=== PATIENT | male | born 1945 | race Caucasian/White ===

== ENCOUNTER → 2018-05-30 | Outpatient (CLI) | payer OTHER ==
--- NOTE | 2018-05-30 14:45 | PCVCIMAG ---
EXAM: BILATERAL LOWER EXTREMITY ARTERIAL DUPLEX INDICATION: Peripheral Arterial Disease. Leg pain. FINDINGS: Right Leg: Common femoral profunda femoral arteries are patent. Superficial femoral artery and popliteal artery are patent. The anterior tibial and peroneal arteries are patent. Occlusion throughout the posterior tibial artery. Left Leg: Common femoral and profunda femoral arteries are patent. Superficial femoral artery and popliteal artery are patent. Previous stent mid/distal superficial femoral artery is patent. Occlusion throughout the posterior tibial artery. The anterior tibial and peroneal arteries are patent. IMPRESSION: Occlusion of the right posterior tibial artery. Otherwise no flow limiting stenosis in the right lower extremity. Occlusion of the left posterior tibial artery. Otherwise no flow limiting stenosis in the left lower extremity. Previous left superficial femoral artery stent maintaining satisfactory patency. LOC:[id number]
== END | disposition home or self-care (01) ==
LOC: PCVCCLINIC 12:03
PROVIDERS: ATTEND Internal Medicine Cardiovascular Disease
DX: I73.9 Peripheral vascular disease, unspecified (principal)
CPT/HCPCS: 93925

== ENCOUNTER → 2018-06-06 | Outpatient (CLI) | payer OTHER ==
--- NOTE | 2018-06-06 11:46 | PCVCIMAG ---
APPROVED REPORT Study performed: 06/06/2018 09:08:40 EXAM: Comprehensive 2D, Doppler, and color-flow Echocardiogram Patient Location: Echo lab Status: routine BSA: 2.18 HR: 92 bpmBP: 142/84 mmHg Rhythm: Atrial Fibrillation Other Information Study Quality: Adequate Risk Factors: Cardiac Risk Factors: HTN, Hyperlipidemia Indications Abnormal ECG Atrial Fibrillation Dyspnea 2D Dimensions LVEF(%): 38.00 (>50%) IVSd: 15.06 (7-11mm)LVOT Diam: 20.00 (18-24mm) LVDd: 50.77 mm PWd: 16.08 (7-11mm)Ascending Ao: 36.18 (22-36mm) LVDs: 42.84 (25-40mm) Left Atrium: 51.02 (27-40mm) Aortic Root: 29.76 mm LV Single Plane 4CH: 38.09 % LV Single Plane 2CH: 35.00 %Howard's LVEF: 36.54 % Biplane EF: 37.5 % Volumes Left Atrial Volume (Systole) Single Plane 4CH: 66.58 mLSingle Plane 2CH: 65.02 mL LA ESV Index: 34.00 mL/m2 Aortic Valve AoV Peak Kevin.: 1.89 m/s AO Peak Gr.: 15.34 mmHgLVOT Max P.56 mmHg AO Mean Gr.: 9.00 mmHgLVOT Mean P.61 mmHg AO V2 Mean: 1.44 m/sLVOT Max V: 0.89 m/s AO V2 VTI: 32.11 cm ELLEN (VTI): 1.29 [id number] V1 VTI: 13.79 cm ELLEN Vmax: 1.41 cm2 Pulmonary Valve PV Peak Kevin.: 0.71 m/sPV Peak Gr.: 2.02 mmHg Tricuspid Valve TR Peak Kevin.: 3.10 m/sRAP Estimate: 7.00 mmHg TR Peak Gr.: 38.61 mmHg PA Pressure: 46.00 mmHg Left Ventricle The left ventricle is normal size. There is normal LV segmental wall motion. Moderate concentric left ventricular hypertrophy. Left ventricular systolic function is mild to moderately decreased. LVEF is 40-45% global hypo This study is not technically sufficient to allow evaluation of the LV diastolic function due to atrial fibrillation. Right Ventricle Right ventricle is dilated. The right ventricular systolic function is normal. Atria Left atrium is borderline dilated. Right atrium is dilated. Aortic Valve The Aortic valve is sclerotic. Mild aortic regurgitation. Mild aortic stenosis. The peak aortic valve gradient is 15 mmHg and the mean is 9 mmHg. The aortic valve area is 1.4 cm2. Mitral Valve There is mitral annular calcification. There is no mitral valve regurgitation noted. No evidence of mitral valve stenosis. Tricuspid Valve The tricuspid valve is normal in structure. Mild tricuspid regurgitation. Pulmonary artery pressure is 46 mmHg. Pulmonic Valve The pulmonary valve is normal in structure. Mild pulmonic regurgitation. Great Vessels The aortic root is normal in size. IVC is normal in size and collapses >50% with inspiration. Pericardium There is no pericardial effusion. <Conclusion> The left ventricle is normal size. Moderate concentric left ventricular hypertrophy. This study is not technically sufficient to allow evaluation of the LV diastolic function due to atrial fibrillation. Right ventricle is dilated. Left atrium is borderline dilated. Right atrium is dilated. Mild aortic regurgitation. Mild aortic stenosis. The peak aortic valve gradient is 15 mmHg and the mean is 9 mmHg. The aortic valve area is 1.4 cm2. There is no mitral valve regurgitation noted. There is mitral annular calcification. Mild tricuspid regurgitation. Pulmonary artery pressure is 46 mmHg. The aortic root is normal in size. There is no pericardial effusion.
--- NOTE | 2018-06-06 12:41 | PCVCIMAG ---
EXAM: BILATERAL CAROTID DUPLEX INDICATION: Carotid Occlusive Disease. FINDINGS: Doppler Measurements (centimeters per second): RIGHT: Peak CCA-43, Peak ECA-111, Diastolic ICA-29, Peak ICA-77, ICA/CCA Ratio-1.8. LEFT: Peak CCA-35, Peak ECA-61, Diastolic ICA-36, Peak ICA-72, ICA/CCA Ratio-2.0. RIGHT CAROTID: The carotid bulb has moderately severe plaque. The proximal internal carotid artery shows <40% stenosis. The common carotid artery shows no significant stenosis. The external carotid artery shows no significant stenosis. LEFT CAROTID: The carotid bulb has moderately severe plaque. The proximal internal carotid artery shows <40% stenosis. The common carotid artery shows no significant stenosis. The external carotid artery shows no significant stenosis. Antegrade flow in both vertebral arteries. IMPRESSION: <40% stenosis of the right internal carotid artery with moderately severe plaque. <40% stenosis of the left internal carotid artery with moderately severe plaque. LOC:[place] [id number]
== END | disposition home or self-care (01) ==
LOC: PCVCIMAG 16:00
PROVIDERS: ATTEND Internal Medicine Cardiovascular Disease
DX: I65.23 Occlusion and stenosis of bilateral carotid arteries (principal); I10 Essential (primary) hypertension; I25.10 Atherosclerotic heart disease of native coronary artery without angina pectoris; I48.0 Paroxysmal atrial fibrillation; R06.09 Other forms of dyspnea; R94.31 Abnormal electrocardiogram [ECG] [EKG]; I07.1 Rheumatic tricuspid insufficiency; R09.89 Other specified symptoms and signs involving the circulatory and respiratory systems; I73.9 Peripheral vascular disease, unspecified
CPT/HCPCS: 93306; 93880

== ENCOUNTER → 2018-06-13 | Outpatient (CLI) | payer OTHER ==
[~2018-06-13] MED LIST: DIAZEPAM 10 MG TABLET. ONE; FUROSEMIDE 40 MG/4 ML VIAL. ONE; IODIXANOL 270 MG/ML 100 ML VIAL. ONE; IOHEXOL 350 MG/ML 100 ML VIAL. ONE; IOHEXOL 350 MG/ML 50 ML VIAL. ONE; IV NORMAL SALINE 1000ML BAG 1,000 ML ONE; IV NORMAL SALINE 500ML BAG 1,000 ML ONE; LIDOCAINE 1% PF 30 ML VIAL. ONE; LIDOCAINE 1%/EPI 1:100,000 20 ML VIAL. ONE; METOPROLOL TARTRATE 5 MG/5 ML VIAL. IVP ONE; MIDAZOLAM HCL/PF 2 MG/2 ML VIAL. ONE; fentaNYL PF VIAL 100 MCG/2 ML VIAL ONE
--- NOTE | 2018-06-13 17:59 | PCVCINTER ---
EXAM: 1. AORTOGRAM AND BILATERAL LOWER EXTREMITY RUNOFF ANGIOGRAM 2. BILATERAL RENAL ANGIOGRAPHY INDICATION: Peripheral arterial disease. Coronary artery disease. Leg pain. Hypertension. Renal atherosclerosis. No prior catheter based angiographic study is available. A full diagnostic angiogram study is performed today and the decision to intervene is based on this diagnostic study. PROCEDURE: Procedure and risks of angiography intervention is appropriate including limb loss stroke and were discussed with the patient's family and consent obtained. The patient's right groin was prepped in the normal sterile fashion. IV conscious sedation was used throughout procedure with appropriate monitoring from 2:15 PM through 3:00 PM. Ultrasound was used to interrogate the right groin and showed the right common femoral artery to be patent. A permanent spot film was obtained. Under ultrasound guidance access into the right common femoral artery was obtained and a 5 Armenian sheath was placed. Through this a 5 Armenian flush catheter was placed into the abdominal aorta at the level of the renal arteries and AP aortogram was performed. Catheter was positioned at the aortic bifurcation and both oblique views of the pelvis were obtained. Catheter was positioned into the right external iliac artery and right leg runoff angiography was performed. Catheter was exchanged for a visceral catheter was placed into the right renal arteries and right renal angiograms obtained. Catheter was placed into the the left renal arteries and left renal angiograms were obtained. Catheter was advanced to the level of the left external iliac artery and left leg runoff angiography was obtained. Dr. Dupont joined the procedure and he performed coronary angiography. Please see his separate dictation for full details. Catheters and wires removed. Sheath was removed and hemostasis obtained using the FISH device. No immediate complications. FINDINGS: Aortogram: There is one right and one left renal artery. Moderate plaque infrarenal abdominal aorta with small fusiform abdominal aortic aneurysm. Pelvis: Ectasia right common iliac artery and fusiform aneurysm dilatation left common iliac artery without significant stenosis. Mild stenosis origin right internal iliac artery. Left internal iliac artery is patent. Moderate plaque right and left external iliac arteries without significant stenosis. Moderate plaque in both common femoral arteries without flow-limiting stenosis. Moderate stenosis at the origins of the profunda femoral arteries bilaterally. Right renal artery: Mild plaque proximal vessel does not cause significant stenosis. Left renal artery: Minimal plaque proximal vessel does not cause significant stenosis. Right leg: Moderate plaque throughout the superficial femoral artery without significant stenosis or popliteal artery is patent. The posterior tibial artery is occluded throughout its length. The anterior tibial artery show scattered plaque without significant stenosis and runs off into a moderate-sized dorsalis pedis. Dyek-kc-ejcunlre stenosis proximal peroneal artery which otherwise shows satisfactory patency throughout. Left leg: Moderate plaque throughout the superficial femoral artery with previous stent in the distal vessel showing good patency. Moderate plaque mid popliteal artery causing 60% stenosis. The posterior tibial artery is occluded throughout. 99% stenosis origin tibioperoneal trunk. Peroneal artery is then patent. 90% stenosis origin of the anterior tibial artery. Anterior tibial artery then shows good patency throughout to runoff into a moderate-sized dorsalis pedis. IMPRESSION: Small infrarenal abdominal aortic aneurysm with aneurysmal involvement of the left common iliac artery. Interval follow-up with aortoiliac duplex is suggested. Previous left superficial femoral artery stent maintaining satisfactory patency. Bilateral infrapopliteal arterial occlusive disease as reviewed above. LOC:[id number]
--- NOTE | 2018-06-14 18:45 | PCVCINTER ---
APPROVED REPORT Study performed: 06/13/2018 13:55:51 Patient Details Patient Status: Out-Patient Room #: 4 The patient is a 72 year-old Male Event Personnel Kiah Veronica MD, Vaughn Hutton RN, Booker Hernandes RT(R), Kari Oreilly RT(R)() Risk Factors Arterial HypertensionDysplipidemia (Type: 1), Cerebrovascular DiseaseFamily HistoryPeripheral Vascular Disease, HypercholesterolemiaPhysical Activity, Last Creatanine 1.1 Previous Procedures/Diagnoses Previous Femoral Procedure, CAD, Hypertension, PVD, Arrhythmias - Supraventricular tachycardias->Paroxysmal AF, Cerebrovascular disease Procedure Narrative A Right Heart Catheterization was performed with a 7 Fr. [place]-Franky catheter and pressure were recorded. Cardiac outputs were obtained by the Thermal Dilution method. A 6F sheath was inserted into the right femoral artery. Coronary angiography was performed using coronary diagnostic catheters. The right coronary system was accessed and visualized with a JR4 catheter. The left coronary system was accessed and visualized with a JL4 catheter. The left ventricle was accessed and visualized with a Straight Pigtail catheter. Left ventriculogram was performed in LOVE projection. Hemodynamics The right atrial mean pressure is 15 mmHg. The right ventricular pressure is 49/13 mmHg. The pulmonary artery pressure is 48/26 mmHg with a mean of 37 mmHg. The mean pulmonary capillary wedge pressure is 27 mmHg. The aortic pressure is 127/73 mmHg with a mean of 96 mmHg. The left ventricular pressure is 126/6 mmHg with a mean of 9 mmHg. The cardiac output and index were assessed using ThermalFick and thermodilutionThermalthermodilution. The cardiac output using thermo method is 5.40 L/min. The cardiac index using thermo method is 2.5 L/min/m2. Conclusion #1 ostial left main with 20 of 30% irregularities distal left main 30% irregularity giving rise to LAD and circumflex #2 LAD with moderate proximal calcification mild disease extends to the apex no occlusive disease is noted #3 circumflex OM first OM with a 3040% ostial lesion moderate distribution this is a nondominant system diffuse distal disease in the circumflex #4 dominant right coronary artery with moderately heavy calcification moderately long in the proximal segment and then the distal third also has a 50-60% long lesion with a well preserved PDA FABRIZIO #5 left ventricle lower limits of normal with EF 45-50% range globally Recommendations and plan: Continue aggressive risk factor modification. No indication for coronary intervention.
== END | disposition home or self-care (01) ==
LOC: PCVCINTER 12:17
PROVIDERS: ATTEND Internal Medicine Cardiovascular Disease
DX: I70.1 Atherosclerosis of renal artery (principal); I25.10 Atherosclerotic heart disease of native coronary artery without angina pectoris; I70.293 Other atherosclerosis of native arteries of extremities, bilateral legs; I70.0 Atherosclerosis of aorta; I10 Essential (primary) hypertension; I47.1 Supraventricular tachycardia; I48.0 Paroxysmal atrial fibrillation; J44.9 Chronic obstructive pulmonary disease, unspecified; E78.00 Pure hypercholesterolemia, unspecified; Z98.49 Cataract extraction status, unspecified eye; Z98.890 Other specified postprocedural states; Z95.5 Presence of coronary angioplasty implant and graft; Z82.49 Family history of ischemic heart disease and other diseases of the circulatory system; F17.210 Nicotine dependence, cigarettes, uncomplicated; Z72.89 Other problems related to lifestyle; Z88.5 Allergy status to narcotic agent; Z79.899 Other long term (current) drug therapy; Z79.82 Long term (current) use of aspirin
CPT/HCPCS: 36010; 36246; 36252; 75716; 76937; 93460; 99152; 99153; C1751; C1760; C1769; C1894; J1940; J2250; J3010; J3490; J7030; J7040; Q9967

== ENCOUNTER → 2018-07-07 | Outpatient (CLI) | payer OTHER | END | disposition home or self-care (01) | LOC: PCVCCLINIC 15:00 | PROVIDERS: ATTEND Internal Medicine Cardiovascular Disease | DX: I48.3 Typical atrial flutter (principal); I25.10 Atherosclerotic heart disease of native coronary artery without angina pectoris; I10 Essential (primary) hypertension; I73.9 Peripheral vascular disease, unspecified; E78.00 Pure hypercholesterolemia, unspecified; G25.0 Essential tremor; F17.210 Nicotine dependence, cigarettes, uncomplicated; F10.10 Alcohol abuse, uncomplicated; R94.31 Abnormal electrocardiogram [ECG] [EKG]; Z88.8 Allergy status to other drugs, medicaments and biological substances; Z79.82 Long term (current) use of aspirin; Z79.899 Other long term (current) drug therapy | CPT/HCPCS: 36415; 80061; 93005; G0463 ==

== ENCOUNTER → 2018-07-18 | Outpatient (CLI) | payer OTHER ==
[~2018-07-18] MED LIST changes: +BENZOCAINE ONE 20% MUCOSAL SPRAY.; -DIAZEPAM 10 MG TABLET. ONE; -FUROSEMIDE 40 MG/4 ML VIAL. ONE; -IODIXANOL 270 MG/ML 100 ML VIAL. ONE; -IOHEXOL 350 MG/ML 100 ML VIAL. ONE; -IOHEXOL 350 MG/ML 50 ML VIAL. ONE; -IV NORMAL SALINE 1000ML BAG 1,000 ML ONE; -IV NORMAL SALINE 500ML BAG 1,000 ML ONE; +IV NORMAL SALINE 500ML BAG 500 ML ONE; -LIDOCAINE 1% PF 30 ML VIAL. ONE; -LIDOCAINE 1%/EPI 1:100,000 20 ML VIAL. ONE; -METOPROLOL TARTRATE 5 MG/5 ML VIAL. IVP ONE
--- NOTE | 2018-07-18 12:59 | PCVCIMAG ---
APPROVED REPORT Study performed: 07/18/2018 09:02:54 EXAM: Transesophageal Echocardiogram with Cardioversion Patient Location: [facility] [place] Room #: 1 Status: routine BSA: 2.13 HR: 72 bpmBP: 149/88 mmHg Rhythm: Atrial Flutter Other Information Study Quality: Excellent Indications Atrial Fibrillation Echo Enhancing Agent Indication: Rule out Shunt Agent(s) / Amount(s) Used: Agitated Saline 10 cc Comments: Negative contrast study for shunt flow. Procedure After obtaining informed consent, patient underwent transesophageal echo in the [facility]. Type of Sedation : Conscious Sedation Sedation was administered by Anni Mendes RN. Sedation start time: 09:31 Case end Time: 09:39 Sedation was achieved intravenously with: Versed (3 mg) Fentanyl (75 mcg) Transesophageal probe was inserted and advanced into esophagus without difficulty by Clifton Noguera MD. Echo enhancement indication: R/O Septal defect. Echo enhancement agent administered: Agitated Saline The BELLA was performed without complications. Synchronized Cardioversion attempted: Successful Synchronized Cardioversion acheived with 1st-20,2nd-100 Joules after 2 attempt(s). Rhythm following Synchronized Cardioversion: Normal Sinus Rhythm Throughout the procedure, the blood pressure, pulse oximetry, cardiac rhythm, and rate were monitored. The patient tolerated the procedure without adverse effects. Recovery from conscious sedation was uneventful and vital signs were stable. Left Ventricle The left ventricle is normal size. There is normal left ventricular wall thickness. The left ventricular systolic function is normal. The left ventricular ejection fraction is within the normal range. LVEF is 50%. Right Ventricle The right ventricle is normal size. The right ventricular systolic function is normal. Atria No thrombus is visualized in the left atrium or appendage. No shunting by contrast bubble injection Aortic Valve Aortic valve is trileaflet, mildly thickened. Mild aortic regurgitation. Mitral Valve Nodular thickening of anterior mitral leaflet Mild mitral regurgitation. No evidence of mitral valve stenosis. Tricuspid Valve The tricuspid valve is normal in structure. There is no tricuspid valve regurgitation noted. Pulmonic Valve The pulmonary valve is normal in structure. There is no pulmonic valvular regurgitation. Great Vessels The aortic root is normal in size. The ascending aorta is normal in size. Aortic arch is normal in caliber. Mild scattered atherosclerosis IVC is normal in size and collapses >50% with inspiration. Pericardium There is no pericardial effusion. <Conclusion> The left ventricular systolic function is normal. LVEF is 50%. No thrombus is visualized in the left atrium or appendage. No shunting by contrast bubble injection Aortic valve is trileaflet, mildly thickened, not significantly stenotic. Mild aortic regurgitation. Nodular thickening of anterior mitral leaflet. Mild mitral regurgitation. There is no pericardial effusion. Successful cardioversion of atrial flutter to sinus with two biphasic synchronous shocks
== END | disposition home or self-care (01) ==
LOC: PCVCINTER 08:29
PROVIDERS: ATTEND Internal Medicine
DX: I08.0 Rheumatic disorders of both mitral and aortic valves (principal); I48.91 Unspecified atrial fibrillation; I48.92 Unspecified atrial flutter; I10 Essential (primary) hypertension; I25.10 Atherosclerotic heart disease of native coronary artery without angina pectoris; E78.5 Hyperlipidemia, unspecified
CPT/HCPCS: 92960; 93312; 93325; J2250; J3010; J7040; 99152

== ENCOUNTER → 2018-08-01 | Outpatient (CLI) | payer OTHER | END | disposition home or self-care (01) | LOC: PCVCCLINIC 15:38 | PROVIDERS: ATTEND Internal Medicine Cardiovascular Disease | DX: I48.3 Typical atrial flutter (principal); I25.10 Atherosclerotic heart disease of native coronary artery without angina pectoris; I10 Essential (primary) hypertension; E78.00 Pure hypercholesterolemia, unspecified; I73.9 Peripheral vascular disease, unspecified; R25.1 Tremor, unspecified; F17.200 Nicotine dependence, unspecified, uncomplicated; J44.9 Chronic obstructive pulmonary disease, unspecified; Z79.899 Other long term (current) drug therapy; Z79.82 Long term (current) use of aspirin | CPT/HCPCS: 36415; 93005; G0463 ==

== ENCOUNTER → 2018-09-14 | Outpatient (CLI) | payer OTHER | END | disposition home or self-care (01) | LOC: PCVCCLINIC 13:52 | PROVIDERS: ATTEND Internal Medicine Cardiovascular Disease | DX: I25.10 Atherosclerotic heart disease of native coronary artery without angina pectoris (principal); R94.31 Abnormal electrocardiogram [ECG] [EKG]; I48.3 Typical atrial flutter; I73.9 Peripheral vascular disease, unspecified; G25.0 Essential tremor; I10 Essential (primary) hypertension; I48.91 Unspecified atrial fibrillation; E78.00 Pure hypercholesterolemia, unspecified; J44.9 Chronic obstructive pulmonary disease, unspecified; F17.210 Nicotine dependence, cigarettes, uncomplicated; Z79.899 Other long term (current) drug therapy; Z88.8 Allergy status to other drugs, medicaments and biological substances | CPT/HCPCS: 93005; G0463 ==

== ENCOUNTER → 2018-12-05 | Outpatient (CLI) | payer OTHER | END | disposition home or self-care (01) | LOC: PCVCCLINIC 14:44 | PROVIDERS: ATTEND Internal Medicine Cardiovascular Disease | DX: I25.10 Atherosclerotic heart disease of native coronary artery without angina pectoris (principal); I73.9 Peripheral vascular disease, unspecified; I10 Essential (primary) hypertension; J44.9 Chronic obstructive pulmonary disease, unspecified; I48.91 Unspecified atrial fibrillation; E78.00 Pure hypercholesterolemia, unspecified; R94.31 Abnormal electrocardiogram [ECG] [EKG]; I65.23 Occlusion and stenosis of bilateral carotid arteries; F17.200 Nicotine dependence, unspecified, uncomplicated; Z88.8 Allergy status to other drugs, medicaments and biological substances; Z79.82 Long term (current) use of aspirin; Z79.899 Other long term (current) drug therapy | CPT/HCPCS: 80061; G0463; 93005 ==

== ENCOUNTER → 2019-06-07 | Outpatient (CLI) | payer OTHER ==
--- NOTE | 2019-06-07 17:02 | PCVCIMAG ---
APPROVED REPORT Study performed: 06/07/2019 14:00:37 EXAM: Comprehensive 2D, Doppler, and color-flow Echocardiogram Patient Location: Echo lab Room #: 2Status: routine BSA: 2.18 HR: 53 bpm Rhythm: Atrial Fibrillation Other Information Study Quality: Good Risk Factors: Cardiac Risk Factors: HTN, Smoking Indications Aortic Valve Disease Atrial Fibrillation CAD Hypertension/HDD 2D Dimensions IVSd: 11.50 (7-11mm)LVOT Diam: 23.57 (18-24mm) LVDd: 57.73 mm PWd: 11.71 (7-11mm)Ascending Ao: 35.82 (22-36mm) LVDs: 38.57 (25-40mm) Left Atrium: 39.12 (27-40mm) Aortic Root: 26.47 mm LV Single Plane 4CH: 52.78 % LV Single Plane 2CH: 57.36 % Biplane EF: 54.0 % Volumes Left Atrial Volume (Systole) Single Plane 4CH: 87.46 mLSingle Plane 2CH: 71.88 mL Biplane LA Volume: 82.00 mLLA ESV Index: 37.00 mL/m2 Aortic Valve AoV Peak Kevin.: 2.25 m/s AO Peak Gr.: 20.94 mmHgLVOT Max P.78 mmHg AO Mean Gr.: 13.28 mmHgLVOT Mean P.10 mmHg AO V2 Mean: 1.77 m/sLVOT Max V: 0.79 m/s AO V2 VTI: 52.05 cmLVOT Mean V: 0.48 m/s ELLEN (VTI): 1.37 [id number] V1 VTI: 16.40 cm ELLEN Vmax: 1.53 cm2 SV (LVOT): 71.50 mL Mitral Valve E/A Ratio: 1.0 MV E Max Kevin.: 0.66 m/s MV A Kevin.: 0.63 m/s MV PHT: 69.20 ms MVA (PHT): 3.18 cm2 IVRT: 107.27 ms TDI E/Lateral E': 13.20E/Medial E': 9.43 Medial E' Kevin.: 0.07 m/s Lateral E' Kevin.: 0.05 m/s Pulmonary Valve PV Peak Kevin.: 0.83 m/sPV Peak Gr.: 2.77 mmHg Tricuspid Valve TR Peak Kevni.: 3.29 m/s TR Peak Gr.: 43.39 mmHg TV Vmax: 0.44 m/sPA Pressure: 50.00 mmHg Left Ventricle The left ventricle is normal size. There is normal LV segmental wall motion. Mild concentric left ventricular hypertrophy. Left ventricular systolic function is normal. The left ventricular ejection fraction is within the normal range. LVEF is 50-55%. This study is not technically sufficient to allow evaluation of the LV diastolic function due to atrial fibrillation. Right Ventricle The right ventricle is normal size. The right ventricular systolic function is normal. Atria Left atrium is mildly dilated. The right atrium size is normal. Aortic Valve Aortic valve is trileaflet. Aortic valve leaflets are sclerotic with decreased leaflet excursion. No aortic regurgitation is present. Mild to moderate aortic stenosis. Highest mean aortic valve gradient is 13_mmHg. Peak aortic valve gradient is 20 mmHg. Calculated ELLEN by the continuity equation is _1.5 cm2. Mitral Valve The mitral valve is normal in structure. There is no mitral valve regurgitation noted. No evidence of mitral valve stenosis. Tricuspid Valve The tricuspid valve is normal in structure. Mild to moderate tricuspid regurgitation. Pulmonic Valve The pulmonary valve is normal in structure. Trace pulmonic regurgitation. Great Vessels The aortic root is normal in size. The ascending aorta is normal in size. Aortic arch is normal in caliber. IVC is normal in size and collapses >50% with inspiration. Pericardium There is no pericardial effusion. There is no pleural effusion. <Conclusion> The left ventricle is normal size. Mild concentric left ventricular hypertrophy. LVEF is 50-55%. This study is not technically sufficient to allow evaluation of the LV diastolic function due to atrial fibrillation. The right ventricle is normal size. Left atrium is mildly dilated. Aortic valve is trileaflet. Aortic valve leaflets are sclerotic with decreased leaflet excursion. Mild to moderate aortic stenosis. Highest mean aortic valve gradient is 13_mmHg. Peak aortic valve gradient is 20 mmHg. Calculated ELLEN by the continuity equation is _1.5 cm2. There is no mitral valve regurgitation noted. Mild to moderate tricuspid regurgitation. The aortic root is normal in size. There is no pericardial effusion.
--- NOTE | 2019-06-07 17:57 | PCVCIMAG ---
EXAM: BILATERAL LOWER EXTREMITY ARTERIAL DUPLEX INDICATION: Peripheral Arterial Disease. Leg pain. FINDINGS: Right Leg: Satisfactory arterial waveforms throughout the common/profunda/superficial femoral, popliteal, anterior tibial, peroneal, and posterior tibial arteries. No flow limiting stenosis seen. Left Leg: Satisfactory arterial waveforms throughout the common/profunda/superficial femoral, popliteal, anterior tibial, peroneal, and posterior tibial arteries. No flow limiting stenosis seen. Previous stent mid/distal superficial femoral artery maintaining good patency. IMPRESSION: Unchanged occlusion right posterior tibial artery. Otherwise no flow limiting stenosis in the right lower extremity. Unchanged occlusion left posterior tibial artery. Otherwise no flow limiting stenosis in the left lower extremity. Previous left superficial femoral artery stent maintaining good patency. LOC:[id number]
== END | disposition home or self-care (01) ==
LOC: PCVCIMAG 12:57
PROVIDERS: ATTEND Internal Medicine Cardiovascular Disease
DX: I07.1 Rheumatic tricuspid insufficiency (principal); I70.213 Atherosclerosis of native arteries of extremities with intermittent claudication, bilateral legs; I25.10 Atherosclerotic heart disease of native coronary artery without angina pectoris; I10 Essential (primary) hypertension
CPT/HCPCS: 93306; 93925